=== PATIENT | female | born 1990 | race American Indian/Alaskan Native ===

== ENCOUNTER 2016-07-16 17:24 | Emergency (ER) | payer MEDICAID ==
[2016-07-16 17:24] VITALS: BMI 24.6
[2016-07-16] MEDS ORDERED: cefTRIAXone (Rocephin) 250 mg Inj IM STA (18:16)
--- NOTE | 2016-07-16 18:18 | C.PDOC ---
History Of Present Illness 26 yo female w/o significant PMHx come in request STD treatment after had possible exposure. Pt reports, " my boyfriend was diagnosed with STD and I want to get treated now". AT present time, pt denies any active complaints-fever, chills, sore throat, abd. pain, N/V, UTI sx, vaginal irritation or discharge, back pain. Denies previous hx of STD. Ambulate to ED for evaluation, not in any apparent distress. Time Seen by Provider: 07/16/16 17:49 Chief Complaint (Nursing): Medical Clearance History Per: Patient Severity: None Past Medical History Reviewed: Historical Data, Nursing Documentation, Vital Signs Vital Signs: Last Vital Signs Temp 97.9 F 07/16/16 17:33 Pulse 80 07/16/16 17:33 Resp 20 07/16/16 17:33 BP 149/102 H 07/16/16 17:33 Pulse Ox 95 07/16/16 18:28 - Medical History PMH: Asthma - [facility] Procedures INJECT/INFUSE NEC (06/06/13) Family History: States: No Known Family Hx - Social History Hx Alcohol Use: No Hx Substance Use: No Review Of Systems Except As Marked, All Systems Reviewed And Found Negative. Constitutional: Negative for: Fever, Chills ENT: Negative for: Ear Discharge, Throat Pain, Throat Swelling Cardiovascular: Negative for: Chest Pain Respiratory: Negative for: Cough, Shortness of Breath, Wheezing Gastrointestinal: Negative for: Nausea Genitourinary: Negative for: Dysuria, Frequency, Incontinence, Vaginal Discharge , Vaginal Bleeding Musculoskeletal: Negative for: Neck Pain, Back Pain Skin: Negative for: Rash Neurological: Negative for: Weakness, Numbness Physical Exam - Physical Exam Appears: Well, Non-toxic, No Acute Distress Skin: Normal Color, Warm, Dry, No Rash Eye(s): bilateral: PERRL Oral Mucosa: Moist Throat: Normal, No Erythema, No Exudate, No Drooling Neck: Supple Lymphatic: No Adenopathy (cervical) Cardiovascular: Rhythm Regular Respiratory: No Stridor, No Wheezing Gastrointestinal/Abdominal: Soft, No Tenderness, No Distention, No Guarding Back: No CVA Tenderness Pelvic: Other (refused) Extremity: No Pedal Edema Neurological/Psych: Oriented x3, Normal Speech ED Course And Treatment O2 Sat by Pulse Oximetry: 95 Progress Note: On re-evaluation, pt is afebrile, hemodynamicaly stable. Non- toxic. PuslOx 99% RA. Neck: Supple, (-) meningeal sign. ENT: No acute findings. Abd: benign. UA results review and appears without acute abnormalities. Pt received STD tx. Chlamydia cx- pending. Pt advised on course of ds, no sexual activity for 1 week. ref. to F/u with PMD, [facility] in 2-3 days for re-eval. return if any worsening or new changes. Disposition Counseled Patient/Family Regarding: Studies Performed, Diagnosis, Need For Followup - Disposition Referrals: [facility] [Outside] [facility] [Outside] Disposition: HOME/ ROUTINE Disposition Time: 18:30 Condition: STABLE Additional Instructions: Avoid unprotected sexual activity for 1 week Follow up with results at Medical records in 1 week Follow up with PMD, [facility] in 2-3 days for re-evaluation as need return to ED if any worsening or new changes. Instructions: Sexually Transmitted Diseases (ED) - Clinical Impression Clinical Impression: Exposure to STD
[2016-07-16 18:28] LABS: RBC URINE 6 /hpf (0-3); URINE BILIRUBIN NEGATIVE (NEGATIVE); URINE BLOOD NEGATIVE (NEGATIVE); URINE COLOR Yellow (YELLOW); URINE GLUCOSE (UA) NORMAL (Normal); URINE KETONE NEGATIVE (NEGATIVE); URINE LEUKOCYTE ESTERASE TRACE Leu/uL (Negative); URINE PROTEIN NEGATIVE (NEGATIVE); WBC URINE 5 /hpf (0-5)
[2016-07-16 18:37] VITALS: BP 131/89; PULSE 83; RESP 18; TEMP 97.7; O2SAT 100
== END 2016-07-16 19:00 | disposition home or self-care (01) ==
LOC: C.ER 17:24
DX: Z20.2 Contact with and (suspected) exposure to infections with a predominantly sexual mode of transmission (principal)
CPT/HCPCS: 81001; 84703; 87086; 87491; 87591; 96372; 99283; J0696